=== PATIENT | female | born 1950 | race Caucasian/White ===

== ENCOUNTER 2024-11-23 19:20 | Inpatient (IN) | payer MEDICARE, OTHER ==
[~2024-11-23] VITALS: Ht 154.9 cm; Wt 50.8 kg
[2024-11-23] MEDS ORDERED: CLONIDINE HCL 0.1 MG TABLET ONE (19:46)
[2024-11-23] MEDS ORDERED: LORAZEPAM 1 MG TABLET ONE ×2 (19:46→20:36)
[2024-11-23] MEDS: LORAZEPAM 0.5 MG TABLET PO ONE ×2 (19:51→20:37)
[2024-11-23] MEDS: CLONIDINE HCL 0.1 MG TABLET PO ONE (19:51)
[2024-11-23] MEDS ORDERED: CARV12.5 PO (20:44)
[2024-11-23] MEDS ORDERED: THIA100T13 PO (20:44)
[2024-11-23] MEDS ORDERED: CLON0.1T14 PO (20:44)
[2024-11-23] MEDS ORDERED: MELA10TA PO (20:44)
[2024-11-23] MEDS ORDERED: LEVO112C4 PO (20:44)
[2024-11-23] MEDS ORDERED: MAGN400C PO (20:44)
[2024-11-23] MEDS ORDERED: QUET25TA PO (20:44)
[2024-11-23] MEDS ORDERED: FLUT9.9S NS (20:44)
[2024-11-23] MEDS ORDERED: CHOL400C8 PO (20:44)
[2024-11-23] MEDS ORDERED: AMLO10TA4 PO (20:44)
[2024-11-23] MEDS ORDERED: FLUO20CA36 PO (20:44)
[2024-11-23] MEDS ORDERED: BUPR1FIL3 SL (20:44)
[2024-11-23] MEDS ORDERED: HYDR-3641 PO (20:44)
[2024-11-23] MEDS ORDERED: METO5TAB87 PO (20:44)
[2024-11-23] MEDS ORDERED: ATOR10TA PO (20:44)
[2024-11-23] MEDS ORDERED: NALT50TA10 PO (20:44)
[2024-11-23] MEDS ORDERED: ONDA4TAB8 PO (20:44)
[2024-11-23] MEDS ORDERED: NALO4SPR (20:44)
[2024-11-23] MEDS ORDERED: GABA-534 PO (20:44)
[2024-11-23] MEDS ORDERED: LISI40TA13 PO (20:44)
[2024-11-23] MEDS ORDERED: FURO-152 PO (20:44)
[2024-11-23] MEDS ORDERED: LORAZEPAM 0.5 MG TABLET PO ONE (20:45)
[2024-11-24] MEDS ORDERED: TEMAZEPAM 7.5 MG CAPSULE PO PRN (00:45)
[2024-11-24] MEDS ORDERED: MAGNESIUM HYDROXIDE 30 ML LIQUID UDC PO PRN (00:45)
[2024-11-24 08:08] VITALS: BP 138/71; TEMP 98.2; O2SAT 98
[2024-11-24] MEDS: ACETAMINOPHEN 325 MG TABLET PO PRN (08:58)
[2024-11-24] MEDS: LORAZEPAM 1 MG TABLET PO PRN ×2 (08:58→14:11)
[2024-11-24] MEDS: FLUOXETINE HCL 20 MG CAPSULE PO SCH (16:55)
[2024-11-24 20:00] VITALS: BP 191/85; TEMP 98.2; O2SAT 90
[2024-11-24] MEDS: METOPROLOL SUCCINATE XL 25 MG TAB.SR.24H PO SCH (21:00)
[2024-11-24] MEDS: hydrALAZINE HCL 25 MG TABLET PO PRN (22:20)
[2024-11-24] MEDS: AMLODIPINE 5 MG TABLET PO SCH (22:20)
[2024-11-24] MEDS: TEMAZEPAM 7.5 MG CAPSULE PO PRN (23:24)
[2024-11-25 07:51] LABS: ALANINE AMINOTRANSFERASE 19 U/L (14-59); ALBUMIN 3.8 g/dL (3.4-5.0); ALKALINE PHOSPHATASE 85 U/L (50-136); ASPARTATE AMINOTRANSFERASE 17 U/L (15-37); BILIRUBIN,DIRECT 0.1 mg/dL (0.0-0.2); BILIRUBIN,TOTAL 0.5 mg/dL (0.2-1.0); CALCIUM 8.7 mg/dL (8.5-10.1); CARBON DIOXIDE 24 mmol/L (21-32); CHLORIDE 100 mmol/L (98-107); GLUCOSE 113 mg/dL (74-106); POTASSIUM 3.7 mmol/L (3.5-5.1); SODIUM SERUM 135 mmol/L (136-145); UREA NITROGEN, BLOOD 23 mg/dL (7-18)
[2024-11-25 08:08] VITALS: BP 183/80; TEMP 98.8; O2SAT 96
[2024-11-25] MEDS: METOPROLOL TARTRATE 25 MG TABLET PO SCH (08:34)
[2024-11-25] MEDS: ENSURE ENLIVE (VAN) 240 ML LIQUID PO SCH (08:35)
[2024-11-25] MEDS ORDERED: LEVOTHYROXINE SODIUM PO SCH (09:00)
[2024-11-25] MEDS ORDERED: NALTREXONE HCL PO SCH (09:00)
[2024-11-25] MEDS ORDERED: GABAPENTIN 300 MG CAPSULE PO SCH (09:00)
[2024-11-25] MEDS ORDERED: ATORVASTATIN 10 MG TABLET PO SCH (09:00)
[2024-11-25] MEDS: FUROSEMIDE 20 MG TABLET PO ONE (10:41)
[2024-11-25] MEDS: AMLODIPINE 10 MG TABLET PO ONE (10:43)
[2024-11-25] MEDS: CARVEDILOL 12.5 MG TABLET PO ONE (10:44)
[2024-11-25 11:30] VITALS: BP 145/79
[2024-11-25] MEDS: LEVOTHYROXINE SODIUM 112 MCG TABLET PO SCH (11:50)
[2024-11-25 16:36] VITALS: BP 134/61; TEMP 97.8; O2SAT 97
[2024-11-25] MEDS: CLONIDINE HCL 0.1 MG TABLET PO SCH (16:43)
[2024-11-25] MEDS: CARVEDILOL 12.5 MG TABLET PO SCH (16:44)
[2024-11-25] MEDS: GABAPENTIN 300 MG CAPSULE PO SCH (16:46)
[2024-11-25] MEDS ORDERED: Medication Not On Formulary EA (Cholecalciferol (Vitamin D3) (Vitamin D3) 1 CAP) PO SCH (18:00)
[2024-11-25] MEDS: ATORVASTATIN 40 MG TABLET PO SCH (20:46)
[2024-11-25 22:01] VITALS: BP 147/67; TEMP 97.7; O2SAT 96
[2024-11-26 07:30] VITALS: BP 180/73; TEMP 99; O2SAT 97
[2024-11-26] MEDS: LISINOPRIL 20 MG TABLET PO SCH (08:57)
[2024-11-26] MEDS: FUROSEMIDE 20 MG TABLET PO SCH (08:58)
[2024-11-26] MEDS: AMLODIPINE 10 MG TABLET PO SCH (08:59)
[2024-11-26] MEDS: THIAMINE HCL 100 MG TABLET PO SCH (09:00)
[2024-11-26] MEDS: CHOLECALCIFEROL 400 UNITS TABLET PO SCH (09:35)
[2024-11-26 11:30] VITALS: BP 109/61; TEMP 98; O2SAT 98
[2024-11-26 16:30] VITALS: BP 94/46; TEMP 98.2; O2SAT 96
[2024-11-26 19:57] VITALS: BP 103/53; TEMP 98.1; O2SAT 96
[2024-11-27] MEDS ORDERED: LEVOTHYROXINE SODIUM 112 MCG TABLET PO SCH (07:00)
[2024-11-27] MEDS: LEVOTHYROXINE SODIUM 100 MCG TABLET PO SCH (07:06)
[2024-11-27 07:46] VITALS: BP 121/61; TEMP 98; O2SAT 96
[2024-11-27 09:56] VITALS: BP 121/61; TEMP 98; O2SAT 96
[2024-11-27 15:12] VITALS: BP 119/59; TEMP 98; O2SAT 96
[2024-11-27] MEDS: GABAPENTIN 300 MG CAPSULE PO SCH (16:15)
[2024-11-27 20:00] VITALS: BP 132/61; TEMP 98.1; O2SAT 97
[2024-11-28 07:56] VITALS: BP 147/75; TEMP 98; O2SAT 96
[2024-11-28 15:27] VITALS: BP 103/46; TEMP 98; O2SAT 96
[2024-11-28] MEDS: LORAZEPAM 0.5 MG TABLET PO PRN (17:54)
[2024-11-28 20:00] VITALS: BP 103/50; TEMP 97.5; O2SAT 98
[2024-11-28] MEDS: BENZOCAINE/MENTH/CETYLPYRD LOZENGE MM PRN (21:48)
[2024-11-29] MEDS: LEVOTHYROXINE SODIUM 112 MCG TABLET PO SCH (06:24)
[2024-11-29] MEDS ORDERED: LEVOTHYROXINE SODIUM 100 MCG TABLET PO SCH (07:00)
[2024-11-29 08:16] VITALS: BP 120/52; TEMP 98.2; O2SAT 98
[2024-11-29 09:01] VITALS: BP 125/64; O2SAT 98
[2024-11-29 13:13] VITALS: BP 96/48; O2SAT 99
[2024-11-29] MEDS: SUMATRIPTAN SUCCINATE 50 MG TABLET PO PRN (13:28)
[2024-11-29 15:30] VITALS: BP 110/59; TEMP 98; O2SAT 100
[2024-11-29 20:07] VITALS: BP 111/51; TEMP 98.1; O2SAT 99
[2024-11-30 05:42] VITALS: BP 118/63; TEMP 98.2; O2SAT 98
[2024-11-30 08:24] VITALS: BP 156/73; TEMP 98; O2SAT 98
[2024-11-30 17:04] VITALS: BP 148/45; TEMP 98.5; O2SAT 98
[2024-11-30 20:00] VITALS: BP 106/54; TEMP 98.2; O2SAT 96
[2024-12-01 08:24] VITALS: BP 154/58; TEMP 98; O2SAT 97
[2024-12-01] MEDS: GABAPENTIN 300 MG CAPSULE PO SCH (09:53)
[2024-12-01 16:54] VITALS: BP 118/58; TEMP 98.2; O2SAT 96
[2024-12-01 19:57] VITALS: BP 146/56; TEMP 98.1; O2SAT 96
[2024-12-02 08:20] VITALS: BP 109/47; TEMP 98.3; O2SAT 97
[2024-12-02 16:32] VITALS: BP 126/63; TEMP 98.3; O2SAT 97
[2024-12-02 17:16] VITALS: BP 106/43; TEMP 98.5; O2SAT 97
[2024-12-02 20:00] VITALS: BP 123/69; TEMP 98.1; O2SAT 97
[2024-12-02] MEDS: CLONIDINE HCL 0.1 MG TABLET PO SCH (20:20)
[2024-12-03 07:56] VITALS: BP 131/62; TEMP 97.9; O2SAT 96
[2024-12-03] MEDS: MAG HYDROX/AL HYDROX/SIMETH 30 ML LIQUID UDC PO PRN (15:20)
[2024-12-03 16:37] VITALS: BP 128/62; TEMP 97.8; O2SAT 96
[2024-12-03 19:57] VITALS: BP 117/58; TEMP 98.1; O2SAT 100
[2024-12-04] MEDS: LEVOTHYROXINE SODIUM 100 MCG TABLET PO SCH (06:03)
[2024-12-04 08:13] VITALS: BP 167/74; TEMP 98.2; O2SAT 99
[2024-12-04 15:37] VITALS: BP 121/50; TEMP 98; O2SAT 96
[2024-12-04 19:40] VITALS: BP 126/57; TEMP 98.3; O2SAT 97
[2024-12-04] MEDS: GABAPENTIN 300 MG CAPSULE PO SCH (20:09)
[2024-12-05 07:59] VITALS: BP 92/74; TEMP 98; O2SAT 98
[2024-12-05 15:47] VITALS: BP 100/71; TEMP 98; O2SAT 98
== END 2024-12-05 17:06 | DRG 881 ==
LOC: ER 19:20 → GPS 22:47
PROVIDERS: ADMIT Psychiatry & Neurology Psychosomatic Medicine; ATTEND Internal Medicine
DX: F32.9 Major depressive disorder, single episode, unspecified (principal); R45.851 Suicidal ideations; F11.20 Opioid dependence, uncomplicated; E87.1 Hypo-osmolality and hyponatremia; F41.9 Anxiety disorder, unspecified; G89.29 Other chronic pain; F15.10 Other stimulant abuse, uncomplicated; G47.00 Insomnia, unspecified; I10 Essential (primary) hypertension; E03.9 Hypothyroidism, unspecified; B00.9 Herpesviral infection, unspecified; K21.9 Gastro-esophageal reflux disease without esophagitis; M79.7 Fibromyalgia; Z79.899 Other long term (current) drug therapy; Z98.890 Other specified postprocedural states; Z86.73 Personal history of transient ischemic attack (TIA), and cerebral infarction without residual deficits; R79.89 Other specified abnormal findings of blood chemistry; E78.5 Hyperlipidemia, unspecified; Z88.5 Allergy status to narcotic agent; Z91.410 Personal history of adult physical and sexual abuse; F19.10 Other psychoactive substance abuse, uncomplicated; Z86.59 Personal history of other mental and behavioral disorders
CPT/HCPCS: 36415; 84443; A4663